=== PATIENT | female | born 1960 | race Hispanic/Latino ===

== ENCOUNTER 2019-05-05 11:50 | Emergency (ER) | payer BC ==
[~2019-05-05] VITALS: Ht 154.9 cm; Wt 76.4 kg
--- NOTE | 2019-05-05 12:20 | NUR ---
Pt reports that she has not taken any of her medications today.
--- NOTE | 2019-05-05 12:46 | Diagnostic Imaging Report ---
EXAMINATION: CXR 2 VIEW - HOPD INDICATION: Cough, chills ^[id number] ^1230 COMPARISON: None FINDINGS: PA and lateral views TUBES and LINES: None. LUNGS: Lungs are well inflated. There is no evidence of pneumonia or pulmonary edema. PLEURA: No pleural effusion or pneumothorax. HEART AND MEDIASTINUM: The cardiomediastinal silhouette is unremarkable.. BONES AND SOFT TISSUES: No focal osseous lesions. Soft tissues are unremarkable. UPPER ABDOMEN: Unremarkable. IMPRESSION: No acute thoracic abnormality. Signed by: Dr. Britton López MD on 05/05/2019 12:42 PM
[2019-05-05 12:54] VITALS: BP 165/81
== END 2019-05-05 13:05 | disposition home or self-care (01) ==
LOC: FSED 11:50
DX: R50.9 Fever, unspecified (principal); R05 Cough; J00 Acute nasopharyngitis [common cold]; I10 Essential (primary) hypertension; E11.9 Type 2 diabetes mellitus without complications; E78.5 Hyperlipidemia, unspecified; Z77.22 Contact with and (suspected) exposure to environmental tobacco smoke (acute) (chronic)
CPT/HCPCS: 71046; 82948; 83518; 87400; 99283

== ENCOUNTER 2021-09-05 15:28 | Emergency (ER) | payer BC, OTHER ==
[~2021-09-05] VITALS: Ht 154.9 cm; Wt 76.2 kg
[2021-09-05] MEDS ORDERED: HYDROCODONE/APAP 5MG-325MG TAB PO ONE (16:00)
[2021-09-05] MEDS ORDERED: HYDROCODON-ACE1 EA11 PO (17:48)
[2021-09-05 18:16] VITALS: BP 134/84
== END 2021-09-05 18:10 | disposition home or self-care (01) ==
LOC: ER 16:13
DX: S82.032A Displaced transverse fracture of left patella, initial encounter for closed fracture (principal); M25.552 Pain in left hip; W01.0XXA Fall on same level from slipping, tripping and stumbling without subsequent striking against object, initial encounter; Y93.01 Activity, walking, marching and hiking; Y92.89 Other specified places as the place of occurrence of the external cause; I10 Essential (primary) hypertension; E11.9 Type 2 diabetes mellitus without complications; E78.5 Hyperlipidemia, unspecified
CPT/HCPCS: 99284

== ENCOUNTER → 2021-09-14 | Day surgery (SDC) | payer OTHER ==
[2021-09-11 12:56] LABS: ANION GAP 14.8 mmol/L (8-16); CALCIUM 9.8 mg/dL (8.4-10.2); CREATININE, SERUM 0.76 mg/dL (0.57-1.11); POTASSIUM 4.8 mmol/L (3.5-5.1)
[~2021-09-14] MED LIST: ACETAMINOPHEN 1000 MG/100 ML IV ONE; ALTOPREV40 MG PO; AMLODIPINE BESY10 MG PO; BUPIVACAINE HCL 0.5% 10ML MPF VIAL INJ ONE; DEXAMETHASONE SOD PHOS INJ 4 MG/ML SDV ONE; GLIMEPIRIDE2 MG PO; HYDROCODON-ACE1 EA11 PO; HYDROCODONE/APAP 5MG-325MG TAB ONE; HYDROMORPHONE 1MG/1ML INJ ONE; KETOROLAC TROMETHAMINE 30 MG/ML VIAL ONE; LIDOCAINE HCL 2% LOCAL INJ 5 ML SDV VIAL INJ ONE; MUPIROCIN 2% OINT 22 GM TUBE ONE; OMEPRAZOLE40 MG PO; ONDANSETRON HCL INJ 2MG/ML 2ML 2 MG/ML VIAL ONE; PAROXETINE HCL20 MG PO; POVIDONE IODINE 0.05% 0.05 % ML PO ONE; PROPOFOL IV EMULSION 10 MG/ML 20 ML VIAL ONE; SEVOFLURANE INHAL SOLN 250 ML PEN BTL ONE; SODIUM CHLORIDE 0.9% 50ML 50 ML ONE
[2021-09-14 12:00] VITALS: BP 157/75
== END | disposition home or self-care (01) ==
LOC: OR 07:44
PROVIDERS: ATTEND Specialist
DX: S82.032A Displaced transverse fracture of left patella, initial encounter for closed fracture (principal); E11.9 Type 2 diabetes mellitus without complications; I10 Essential (primary) hypertension; W01.0XXA Fall on same level from slipping, tripping and stumbling without subsequent striking against object, initial encounter; Y92.009 Unspecified place in unspecified non-institutional (private) residence as the place of occurrence of the external cause; Z01.810 Encounter for preprocedural cardiovascular examination; Z01.812 Encounter for preprocedural laboratory examination; Z20.822 Contact with and (suspected) exposure to COVID-19; Z79.84 Long term (current) use of oral hypoglycemic drugs; Z79.899 Other long term (current) drug therapy; Z68.30 Body mass index [BMI] 30.0-30.9, adult
CPT/HCPCS: 27524; 36415 ×2; 76000; 80048; 82948; 93005; C1713; J0690; J1170; J2405; U0002; J1100; J1885; J2001